=== PATIENT | female | born 1965 | race Caucasian/White ===

== ENCOUNTER 2017-02-28 09:04 | Outpatient (CLI) | END 2017-02-28 09:05 | disposition short-term general hospital (02) | LOC: AMBL 09:04 | PROVIDERS: ATTEND Emergency Medicine | DX: M25.551 Pain in right hip (principal); S09.90XA Unspecified injury of head, initial encounter; W19.XXXA Unspecified fall, initial encounter; Y92.59 Other trade areas as the place of occurrence of the external cause ==